=== PATIENT | female | born 1965 | race African-American/Black ===

== ENCOUNTER 2016-11-01 21:06 | Emergency (ER) | payer SELFPAY ==
[~2016-11-01] VITALS: Ht 154.9 cm; Wt 69.0 kg
[~2016-11-01 21:06] MED LIST: IBUP-232 PO
[2016-11-01 21:11] VITALS: BP 118/77; PULSE 98; RESP 18; TEMP 98.5; O2SAT 100
[2016-11-01] MEDS ORDERED: AUGM875T3 PO (21:46)
--- NOTE | 2016-11-01 21:46 | PD ---
HPI Chief Complaint: Facial Pain or Swelling Time Seen by Provider: 21:26 Travel History International Travel<30 days: No Contact w/Intl Traveler<30days: No Traveled to known affect area: No History of Present Illness HPI 51-year-old female presents to the emergency room for evaluation of left-sided ethmoid sinus pain and pressure and left-sided ear pain for the past 3 days. Patient had gradual onset of symptoms. Pain radiates into her neck. It is worse when she leans forward. She has been taking [id number] Advil, Benadryl, sinus medication, and intranasal fluticasone without any relief in symptoms. Denies dental pain; she went to her dentist recently and was given a clean bill of health. Denies purulent nasal drainage, fever, chills, nausea, vomiting. PFSH Past Medical History Medical History: Denies Significant Hx Diminished Hearing: No Tetanus Vaccination: < 5 Years Influenza Vaccination: No ?: Not LMP: SEPTEMBER Past Surgical History Other Surgery: Yes (LEFT HAND) Social History Alcohol Use: Yes (RARE) Tobacco Use: No Substance Use: No Allergies-Medications (Allergen,Severity, Reaction): Coded Allergies: No Known Allergies (Unverified , 10/05/16) Reported Meds & Prescriptions Reported Meds & Active Scripts Active Augmentin (Amoxicillin-Clavulanate) 875-125 Mg Tab 1 Tab PO BID 7 Days Review of Systems Except as stated in HPI: all other systems reviewed are Neg Physical Exam Narrative GENERAL: Well-nourished, well-developed female in no acute distress. Afebrile. Ambulatory. SKIN: Focused skin assessment warm/dry. HEAD: Normocephalic. Tenderness to palpation over the ethmoid sinus. Pain when she leans forward. EYES: No scleral icterus. No injection or drainage. ENT: Mucosa pink and moist. No erythema or exudates. No uvular edema. No uvular , palatal, or tonsillar deviation. Airway patent. Nasal turbinates appear normal without nasal blood, purulent drainage or septal hematoma. EARS: Bilateral pinnae and external canals appear within normal limits. Bilateral tympanic membranes without erythema or perforation. NECK: Supple, trachea midline. No JVD or lymphadenopathy. CARDIOVASCULAR: Regular rate and rhythm without murmurs, gallops, or rubs. RESPIRATORY: Breath sounds equal bilaterally. No accessory muscle use. Data Data Last Documented VS Vital Signs Date Time Temp Pulse Resp B/P Pulse Ox O2 Delivery O2 Flow Rate FiO2 11/01/16 21:11 98.5 98 18 118/77 100 Orders Acetamin-Hydrocod 325-5 Mg ([place] 5-325 (11/01/16 22:00) [facility] Medical Decision Making Medical Screen Exam Complete: Yes Emergency Medical Condition: Yes Medical Record Reviewed: Yes Differential Diagnosis Bacterial Sinusitis, viral sinusitis, dental infection Narrative Course 51-year-old female presents to the emergency room for evaluation of left-sided facial pain for the past 3 days. Patient denies any purulent drainage, fever, chills, nausea, vomiting. Pain is worsened when she leans forward. Radiates into the left ear and neck. Physical exam reveals tenderness to palpation over the left ethmoidal sinus. No evidence of bacterial infection and bilateral ears. No purulent drainage from the nose. Vital signs stable. History and physical exam are consistent with sinusitis. Likely viral patient will be treated empirically for bacterial with Augmentin. She was given Lortab in the emergency room for pain. Patient told to follow-up with an ENT doctor or return for worsening symptoms. She understands and agrees to plan. Diagnosis Primary Impression: Ethmoid sinusitis Qualified Code: J01.20 - Acute ethmoidal sinusitis, recurrence not specified Referrals: Ear / Nose / Throat Specialist Patient Instructions: General Instructions, Sinusitis (ED) Additional Instructions: Rest and drink plenty of fluids. Take Augmentin as directed, until gone. Follow up with a primary care physician. Return to emergency room for worsening symptoms, as discussed. Med/Other Pt SpecificInfo: Prescription(s) given Scripts Amoxicillin-Clavulanate (Augmentin)875-125 Mg Tab1 Tab PO BID 7 Days Ref 0 Prov:Jana Khan MD 11/01/16 Disposition: 01 DISCHARGE HOME Condition: Stable Mirela Ruelas Nov 01, 2016 21:46
[2016-11-01] MEDS ORDERED: ACETAMINOPHEN/HYDROcodone 325 MG/5 MG TAB PO ONE (22:00)
== END 2016-11-01 22:49 | disposition home or self-care (01) ==
LOC: PHEFT 21:06
DX: J01.20 Acute ethmoidal sinusitis, unspecified (principal); H92.02 Otalgia, left ear; M54.2 Cervicalgia
CPT/HCPCS: 99283